=== PATIENT | male | born 1990 | race Two or more races ===

== ENCOUNTER 2019-09-06 19:24 | Emergency (ER) | payer OTHER ==
[2019-09-06] MEDS ORDERED: Orphenadrine 100 MG Tab.ER PO STA (21:21)
[2019-09-06] MEDS ORDERED: Ibuprofen 600 MG Tab PO STA (21:21)
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
[2019-09-06] MEDS ORDERED: Ibuprofen 800 MG Tab PO ONE (21:29)
== END 2019-09-06 21:36 | disposition home or self-care (01) ==
LOC: JD.ED 19:24
DX: S00.83XA Contusion of other part of head, initial encounter (principal); S30.810A Abrasion of lower back and pelvis, initial encounter; S50.312A Abrasion of left elbow, initial encounter; S50.311A Abrasion of right elbow, initial encounter; S80.811A Abrasion, right lower leg, initial encounter; V53.5XXA Driver of pick-up truck or van injured in collision with car, pick-up truck or van in traffic accident, initial encounter
CPT/HCPCS: 99283; A9270